=== PATIENT | female | born 1970 | race Two or more races ===

== ENCOUNTER 2020-02-06 00:23 | Emergency (ER) | payer BC ==
[~2020-02-06] VITALS: Ht 167.6 cm; Wt 75.0 kg
[2020-02-06 00:24] VITALS: BP 151/85
== END 2020-02-06 00:53 | disposition left against medical advice (07) ==
LOC: EMS 00:23
DX: F41.9 Anxiety disorder, unspecified (principal); Z53.21 Procedure and treatment not carried out due to patient leaving prior to being seen by health care provider